=== PATIENT | male | born 1940 | race Caucasian/White ===

== ENCOUNTER 2019-09-10 12:15 | Inpatient (IN) ==
[2019-09-10] MEDS ORDERED: ONDANSETRON 4 MG/2 ML VIAL IV PRN (14:56)
[2019-09-10] MEDS ORDERED: GLUCAGON 1 MG VIAL IM PRN (14:56)
[2019-09-10] MEDS ORDERED: DEXTROSE 50% 25 GM/50 ML VIAL IV PRN (14:56)
[2019-09-10] MEDS: DEXTROSE 5% NACL 0.45% 1,000 ML IV SCH (15:55)
[2019-09-10] MEDS: HYDROCORTISONE 100 MG VIAL IV SCH ×2 (15:55→22:01)
[2019-09-10] MEDS: LEVOFLOXACIN INJ 500 MG in PREMIX 1 EACH IV SCH (16:00)
[2019-09-10] MEDS: INSULIN LISPRO 100 UNIT/ML SUBCUT SCH ×2 (18:14)
[2019-09-11] MEDS: DEXTROSE 5% NACL 0.45% 1,000 ML IV SCH ×3 (00:11→16:20)
[2019-09-11] MEDS: INSULIN LISPRO 100 UNIT/ML SUBCUT SCH ×4 (00:23→18:52)
[2019-09-11] MEDS: hydrALAZINE 20 MG/1 ML VIAL IV PRN ×2 (00:50→07:37)
[2019-09-11 04:43] LABS: Basophils % 0.1 % (0.0-0.8); Hematocrit 41.5 VOL% (42.0-52.0); Hemoglobin 12.7 GM/DL (14.0-18.0); Immature Granulocytes % 1.2 %; Immature Granulocytes Absolute 0.19 #; Lymphocytes # 0.3 10*3/uL (1.4-4.0); Lymphocytes % 1.8 % (21.2-54.2); Mean Corpuscular HGB Conc 30.6 GM/DL (32-36); Mean Platelet Volume 12.2 FL (9.6-12.0); Monocytes % 3.3 % (1.7-12.7); NRBC # 0.02 10*3/uL; Neutrophils % 93.6 % (38.7-73.9); Platelet Count 105 T/CUMM (130-400); Red Blood Count 4.11 MC/CUMM (3.8-5.5); Red Cell Distribution Width 15.5 % (9.3-17.3); White Blood Count 15.8 T/CUMM (4-12)
[2019-09-11 05:03] LABS: Calcium 8.7 MG/DL (8.5-10.1); Osmolality,Calculated 341.9 MOS/KG (273-304)
[2019-09-11 05:06] LABS: Troponin I 0.384 NG/ML (0.00-0.045)
[2019-09-11 05:07] LABS: Band Neutrophils 5 % (0-10); Lymphocytes 1 % (20-55); Segmented Neutrophils 90 % (50-85); Total Cells Counted 100
[2019-09-11 05:08] LABS: Macrocytosis Slight
[2019-09-11 05:09] LABS: Burr Cells Slight; Platelet Estimate Decreased
[2019-09-11] MEDS: HYDROCORTISONE 100 MG VIAL IV SCH ×3 (06:34→23:16)
[2019-09-12] MEDS: INSULIN LISPRO 100 UNIT/ML SUBCUT SCH ×4 (00:19→18:52)
[2019-09-12] MEDS: DEXTROSE 5% NACL 0.45% 1,000 ML IV SCH ×3 (00:36→16:55)
[2019-09-12 05:08] LABS: Calcium 8.2 MG/DL (8.5-10.1); Osmolality,Calculated 325.6 MOS/KG (273-304)
[2019-09-12] MEDS: HYDROCORTISONE 100 MG VIAL IV SCH ×3 (06:19→23:36)
[2019-09-12] MEDS: hydrALAZINE 20 MG/1 ML VIAL IV PRN (08:46)
[2019-09-12] MEDS ORDERED: cloNIDine 0.2 MG/24 HR PATCH TRANSDERM SCH (15:00)
[2019-09-12] MEDS: POTASSIUM PHOSPHATE 15 MMOL in SODIUM CHLORIDE 0.9% 100 ML IV SCH ×2 (15:50→19:57)
[2019-09-12] MEDS: LEVOFLOXACIN INJ 500 MG in PREMIX 1 EACH IV SCH (15:55)
[2019-09-13] MEDS: hydrALAZINE 20 MG/1 ML VIAL IV PRN (00:02)
[2019-09-13] MEDS: INSULIN LISPRO 100 UNIT/ML SUBCUT SCH ×5 (00:41→23:21)
[2019-09-13] MEDS: DEXTROSE 5% NACL 0.45% 1,000 ML IV SCH ×3 (01:14→18:20)
[2019-09-13] MEDS: POTASSIUM PHOSPHATE 15 MMOL in SODIUM CHLORIDE 0.9% 100 ML IV SCH ×2 (02:45→15:44)
[2019-09-13 04:44] LABS: Calcium 7.4 MG/DL (8.5-10.1); Osmolality,Calculated 311.3 MOS/KG (273-304)
[2019-09-13] MEDS: HYDROCORTISONE 100 MG VIAL IV SCH ×3 (06:58→23:14)
[2019-09-13] MEDS: ALBUTEROL/IPRATROPIUM 3 ML NEB RESP TX SCH ×2 (12:29→15:54)
[2019-09-13] MEDS: ALBUTEROL 2.5 MG/3 ML NEB RESP TX SCH ×3 (12:37→21:03)
[2019-09-13] MEDS: VANCOMYCIN INJ 750 MG in SODIUM CHLORIDE 0.9% 250 ML IV SCH (16:44)
[2019-09-14] MEDS: ALBUTEROL 2.5 MG/3 ML NEB RESP TX SCH ×7 (00:42→23:20)
[2019-09-14] MEDS: DEXTROSE 5% NACL 0.45% 1,000 ML IV SCH ×2 (04:15→13:30)
[2019-09-14 05:21] LABS: Calcium 7.2 MG/DL (8.5-10.1); Osmolality,Calculated 307.4 MOS/KG (273-304)
[2019-09-14] MEDS: INSULIN LISPRO 100 UNIT/ML SUBCUT SCH ×3 (06:40→17:37)
[2019-09-14] MEDS: HYDROCORTISONE 100 MG VIAL IV SCH ×2 (06:41→15:40)
[2019-09-14] MEDS: LEVOFLOXACIN INJ 500 MG in PREMIX 1 EACH IV SCH (15:40)
[2019-09-15] MEDS: HYDROCORTISONE 100 MG VIAL IV SCH ×4 (00:35→23:00)
[2019-09-15] MEDS: DEXTROSE 5% NACL 0.45% 1,000 ML IV SCH ×2 (00:56→04:32)
[2019-09-15] MEDS: INSULIN LISPRO 100 UNIT/ML SUBCUT SCH ×4 (01:03→19:15)
[2019-09-15] MEDS: ALBUTEROL 2.5 MG/3 ML NEB RESP TX SCH ×6 (03:10→23:52)
[2019-09-15 05:29] LABS: Prealbumin 6.2 MG/DL (20-40)
[2019-09-15] MEDS ORDERED: MAGNESIUM SULF RIDER 4 GM in PREMIX 1 EACH IV PRN (07:44)
[2019-09-15] MEDS ORDERED: MAGNESIUM SULF RIDER 2 GM in PREMIX 1 EACH IV PRN (07:44)
[2019-09-15] MEDS: MULTIVITAMIN LIQUID (CENTRUM) 60 ML BOTTLE PO SCH (09:53)
[2019-09-15] MEDS: ALBUTEROL/IPRATROPIUM 3 ML NEB RESP TX PRN (14:03)
[2019-09-15] MEDS: VANCOMYCIN INJ 750 MG in SODIUM CHLORIDE 0.9% 250 ML IV SCH (15:40)
[2019-09-15] MEDS: MORPHINE 4 MG/1 ML VIAL IV PRN (15:48)
[2019-09-16] MEDS: DEXTROSE 5% NACL 0.45% 1,000 ML IV SCH ×3 (01:00→09:41)
[2019-09-16] MEDS: INSULIN LISPRO 100 UNIT/ML SUBCUT SCH ×4 (02:07→18:33)
[2019-09-16] MEDS: MORPHINE 4 MG/1 ML VIAL IV PRN ×3 (02:08→18:17)
[2019-09-16] MEDS: ALBUTEROL 2.5 MG/3 ML NEB RESP TX SCH ×5 (03:38→19:24)
[2019-09-16 05:28] LABS: Basophils % 0.2 % (0.0-0.8); Hematocrit 28.7 VOL% (42.0-52.0); Hemoglobin 9.2 GM/DL (14.0-18.0); Immature Granulocytes % 1.7 %; Lymphocytes # 0.1 10*3/uL (1.4-4.0); Lymphocytes % 1.1 % (21.2-54.2); Mean Corpuscular HGB Conc 32.1 GM/DL (32-36); Mean Corpuscular Volume 96.6 FL (87-102); Mean Platelet Volume 12.2 FL (9.6-12.0); Monocytes % 2.1 % (1.7-12.7); Neutrophils % 94.9 % (38.7-73.9); Platelet Count 51 T/CUMM (130-400); Red Blood Count 2.97 MC/CUMM (3.8-5.5); Red Cell Distribution Width 14.5 % (9.3-17.3); White Blood Count 11.6 T/CUMM (4-12)
[2019-09-16 05:30] LABS: Calcium 7.9 MG/DL (8.5-10.1); Osmolality,Calculated 306.3 MOS/KG (273-304)
[2019-09-16 06:06] LABS: Lymphocytes 2 % (20-55); Platelet Estimate Decreased; Polychromasia Few; Segmented Neutrophils 98 % (50-85); Total Cells Counted 100
[2019-09-16] MEDS: HYDROCORTISONE 100 MG VIAL IV SCH ×3 (09:41→22:14)
[2019-09-16] MEDS: POTASSIUM CHLORIDE RIDER 10 MEQ in PREMIX 1 EACH IV PRN ×5 (09:43→22:09)
[2019-09-16] MEDS: MULTIVITAMIN LIQUID (CENTRUM) 60 ML BOTTLE PO SCH (09:51)
[2019-09-16] MEDS: LEVOFLOXACIN INJ 500 MG in PREMIX 1 EACH IV SCH (16:20)
[2019-09-17] MEDS: ALBUTEROL 2.5 MG/3 ML NEB RESP TX SCH ×6 (00:02→19:25)
[2019-09-17] MEDS: INSULIN LISPRO 100 UNIT/ML SUBCUT SCH ×4 (01:21→18:57)
[2019-09-17] MEDS: DEXTROSE 5% NACL 0.45% 1,000 ML IV SCH ×3 (02:32→16:20)
[2019-09-17] MEDS: MORPHINE 4 MG/1 ML VIAL IV PRN ×2 (04:22→16:18)
[2019-09-17 05:35] LABS: Calcium 8.2 MG/DL (8.5-10.1)
[2019-09-17] MEDS: HYDROCORTISONE 100 MG VIAL IV SCH ×3 (06:22→22:17)
[2019-09-17] MEDS: ALBUTEROL/IPRATROPIUM 3 ML NEB RESP TX PRN ×2 (07:41→07:59)
[2019-09-17] MEDS: MULTIVITAMIN LIQUID (CENTRUM) 60 ML BOTTLE PO SCH (09:37)
[2019-09-17] MEDS: VANCOMYCIN INJ 750 MG in SODIUM CHLORIDE 0.9% 250 ML IV SCH (16:12)
[2019-09-17] MEDS: hydrALAZINE 20 MG/1 ML VIAL IV PRN (16:18)
[2019-09-18] MEDS: ALBUTEROL 2.5 MG/3 ML NEB RESP TX SCH ×6 (00:22→19:12)
[2019-09-18] MEDS: INSULIN LISPRO 100 UNIT/ML SUBCUT SCH ×4 (03:28→18:18)
[2019-09-18] MEDS: DEXTROSE 5% NACL 0.45% 1,000 ML IV SCH ×2 (03:28→13:10)
[2019-09-18] MEDS: HYDROCORTISONE 100 MG VIAL IV SCH ×2 (06:33→17:31)
[2019-09-18] MEDS: MORPHINE 4 MG/1 ML VIAL IV PRN ×3 (06:35→17:30)
[2019-09-18] MEDS: MULTIVITAMIN LIQUID (CENTRUM) 60 ML BOTTLE PO SCH (09:40)
[2019-09-18 21:28] VITALS: BP 94/52
== END 2019-09-18 22:01 | disposition expired | DRG 682 ==
LOC: N.CC 13:38 → SUATTDRO 13:38 → N.4E 09-14 18:39
PROVIDERS: ADMIT Internal Medicine; ATTEND Hospitalist